=== PATIENT | female | born 1965 | race Caucasian/White ===

== ENCOUNTER 2018-01-07 20:02 | Emergency (ER) | payer SELFPAY ==
[~2018-01-07] VITALS: Ht 154.9 cm; Wt 86.2 kg
[2018-01-07 20:14] VITALS: BP 135/77
--- NOTE | 2018-01-07 20:17 | NUR ---
PT TRIAGED AND EKG PERFORMED
[2018-01-07 21:12] LABS: APPEARANCE,URINE CLEAR (CLEAR); COLOR,URINE YELLOW (YELLOW); LEUKOCYTE ESTERASE ,URINE NEGATIVE (NEGATIVE); NITRITE, URINE NEGATIVE (NEGATIVE); PH,URINE 6.5 (5.0-9.0)
[2018-01-07 21:13] LABS: BILIRUBIN,URINE NEGATIVE (NEGATIVE); BLOOD, URINE NEGATIVE (NEGATIVE); UGLUCOSE NEGATIVE (NEGATIVE)
--- NOTE | 2018-01-07 21:29 | NUR ---
PATIENT LEFT WITHOUT BEING SEEN BY DR. LABOY. NO FURTHER CARE PROVIDED FOR PATIENT.
== END 2018-01-07 21:29 | disposition left against medical advice (07) ==
LOC: MED 20:02
DX: R07.89 Other chest pain (principal); R51 Headache; M79.602 Pain in left arm; Z53.21 Procedure and treatment not carried out due to patient leaving prior to being seen by health care provider
CPT/HCPCS: 81003; 99281